=== PATIENT | male | born 1990 | race Caucasian/White ===

== ENCOUNTER 2018-07-29 11:00 | Emergency (ER) | payer SELFPAY ==
[~2018-07-29] VITALS: Ht 193 cm; Wt 158.8 kg
[~2018-07-29 11:00] MED LIST: OMEP20CA12 PO; RT-ALBUINH INH
[2018-07-29 11:16] LABS: BASOPHILS % (AUTO) 0 % (0-10); EOSINOPHILS # (AUTO) 0.2 10^3/uL (0.0-0.3); EOSINOPHILS % (AUTO) 2 % (0-10); HEMATOCRIT 44 % (40-54); LYMPHOCYTES # (AUTO) 2.1 X 10^3 (1.0-4.0); LYMPHOCYTES % (AUTO) 20 % (12-44); MEAN CORPUSCULAR HEMOGLOBIN 28 PG (25-34); MEAN CORPUSCULAR HGB CONC 34 G/DL (32-36); MEAN CORPUSCULAR VOLUME 81 FL (80-99); MEAN PLATELET VOLUME 9.8 FL (7.4-10.4); MONOCYTES # (AUTO) 0.9 X 10^3 (0.0-1.0); MONOCYTES % (AUTO) 9 % (0-12); NEUTROPHILS # (AUTO) 7.2 X 10^3 (1.8-7.8); NEUTROPHILS % (AUTO) 69 % (42-75); PLATELET COUNT 305 10^3/uL (130-400); RED BLOOD COUNT 5.43 10^6/uL (4.35-5.85); RED CELL DISTRIBUTION WIDTH 13.4 % (10.0-14.5); WHITE BLOOD COUNT 10.4 10^3/uL (4.3-11.0)
[2018-07-29] MEDS: ONDANSETRON 4 MG/2 ML (SDV) Z0FRAN IVP ONE (11:20)
[2018-07-29] MEDS: LIDOCAINE 2% VISCOUS 15 ML UDC PO ONE (11:21)
[2018-07-29] MEDS: ANTACID SUSP 30 ML UDC (MYLANTA) PO ONE (11:21)
[2018-07-29] MEDS: NS IV 1000 ML 1,000 ML IV ONE (11:21)
[2018-07-29 11:37] LABS: ALANINE AMINOTRANSFERASE 29 U/L (0-55); ALBUMIN 4.7 GM/DL (3.2-4.5); ALKALINE PHOSPHATASE 81 U/L (40-136); BILIRUBIN,TOTAL 0.4 MG/DL (0.1-1.0); BUN/CREATININE RATIO 13; CALCIUM 10.2 MG/DL (8.5-10.1); CARBON DIOXIDE 23 MMOL/L (21-32); CHLORIDE 105 MMOL/L (98-107); CREATININE SERUM 0.89 MG/DL (0.60-1.30); GFR ESTIMATED > 60; GLUCOSE 94 MG/DL (70-105); LIPASE 12 U/L (8-78); POTASSIUM 4.3 MMOL/L (3.6-5.0); SODIUM 138 MMOL/L (135-145); TOTAL PROTEIN 8.3 GM/DL (6.4-8.2)
--- OUTSIDE RECORDS SUMMARY | 2018-07-29 11:40 | XMS REPORT | Continuity of Care Document ---
Author Author [facility] Organization [facility] Address Unknown Phone Unavailable Allergies Active Description Code Type Severity Reaction Onset Reported/Identified Relationship to Patient Clinical Status Yes No Known Drug Allergies [id number] Drug Allergy Unknown N/A 05/02/2015 Medications There is no data. Problems Date Dx Coded Attending Type Code Diagnosis Diagnosed By 02/06/2014 ELIAS LUND MD Ot 305.1 TOBACCO USE DISORDER 02/06/2014 ELIAS LUND MD Ot 493.90 ASTHMA, UNSPECIFIED 02/06/2014 ELIAS LUND MD Ot 924.20 CONTUSION OF FOOT 02/06/2014 ELIAS LUND MD Ot E906.8 INJ NEC CAUSED BY ANIMAL 05/02/2015 TANA WORRELL MD Ot 786.50 CHEST PAIN NOS 05/02/2015 TANA WORRELL MD Ot 786.59 CHEST PAIN NEC Procedures There is no data. Results Test Result Range Complete blood count (CBC) with automated white blood cell (WBC) differential - 07/29/18 11:06 Blood leukocytes automated count (number/volume) 10.4 10*3/uL 4.3-11.0 Blood erythrocytes automated count (number/volume) 5.43 10*6/uL 4.35-5.85 Venous blood hemoglobin measurement (mass/volume) 15.0 g/dL 13.3-17.7 Blood hematocrit (volume fraction) 44 % 40-54 Automated erythrocyte mean corpuscular volume 81 [foz_us] 80-99 Automated erythrocyte mean corpuscular hemoglobin (mass per erythrocyte) 28 pg 25-34 Automated erythrocyte mean corpuscular hemoglobin concentration measurement ( mass/volume) 34 g/dL 32-36 Automated erythrocyte distribution width ratio 13.4 % 10.0-14.5 Automated blood platelet count (count/volume) 305 10*3/uL 130-400 Automated blood platelet mean volume measurement 9.8 [foz_us] 7.4-10.4 Automated blood neutrophils/100 leukocytes 69 % 42-75 Automated blood lymphocytes/100 leukocytes 20 % 12-44 Blood monocytes/100 leukocytes 9 % 0-12 Automated blood eosinophils/100 leukocytes 2 % 0-10 Automated blood basophils/100 leukocytes 0 % 0-10 Blood neutrophils automated count (number/volume) 7.2 10*3 1.8-7.8 Blood lymphocytes automated count (number/volume) 2.1 10*3 1.0-4.0 Blood monocytes automated count (number/volume) 0.9 10*3 0.0-1.0 Automated eosinophil count 0.2 10*3/uL 0.0-0.3 Automated blood basophil count (count/volume) 0.0 10*3/uL 0.0-0.1 Encounters ACCT No. Visit Date/Time Discharge Status Pt. Type Provider Facility Loc./Unit Complaint [id number] 05/02/2015 00:34:00 05/02/2015 02:44:00 DIS Emergency TANA WORRELL MD [facility] ER CP [id number] 02/06/2014 00:22:00 02/06/2014 00:57:00 DIS Emergency ELIAS LUND MD [facility] ER COW STEPPED ON LFT FOOT [id number] 07/29/2018 11:02:00 ACT Emergency TANA WORRELL MD [facility] ER CHEST PAIN;VOMITING [id number] 05/02/2015 03:30:07 ACT Document Registration [id number] 04/04/2018 12:30:00 04/04/2018 23:59:59 [facility] Outpatient ZEYAD DAVIS [facility]
--- NOTE | 2018-07-29 11:42 | ED Chest Pain ---
General Chief Complaint: Chest Wall/Rib Pain Stated Complaint: CHEST PAIN;VOMITING Source: patient Exam Limitations: no limitations History of Present Illness Date Seen by Provider: Jul 29, 2018 Time Seen by Provider: 11:03 Initial Comments This 28-year-old young man presents to emergency room with complaints of chest pain, nausea and vomiting, and shortness of breath. He arrives via EMS. Patient was at work when he suddenly developed chest pain and vomited a short time after. He then developed shortness of breath. EMS noted wheezing on auscultation. A DuoNeb treatment was administered. This seemed to resolve his wheezing, shortness of breath, and chest pain. Patient notes he is presently taking Prilosec as treatment for ulcer. Patient has not undergone endoscopy. Ulcer was diagnosed by clinical impression. He does have a history of asthma as well. He is noted to be tachycardic but states that he is anxious. He has no pain now but is tender in epigastrium on palpation. Allergies and Home Medications Allergies Coded Allergies: No Known Drug Allergies (Unverified , 05/02/15) Home Medications Albuterol Sulfate 8.5 Gm Hfa.aer.ad, 1 INHALER INH UD, (Reported) Albuterol Sulfate 1 Puff Puff, 2 PUFF IH Q4H 1 PUFF = 90 MCG Prescribed by: TANA DAVIS on 07/29/18 1222 Famotidine 20 Mg Tablet, 20 MG PO BID Prescribed by: TANA DAVIS on 07/29/18 1221 Omeprazole 20 Mg Capsule.dr, 20 MG PO DAILY Prescribed by: TANA DAVIS on 05/02/15 0234 Ondansetron 4 Mg Tab.rapdis, 4 MG SL Q4H PRN for NAUSEA/VOMITING-1ST LINE Prescribed by: TANA DAVIS on 07/29/18 1221 Sucralfate 1 Gm/10 Ml Oral.susp, 1 GM PO QID 30 minutes before meals and before bed Prescribed by: TNAA DAVIS on 07/29/18 1221 Patient Home Medication List Home Medication List Reviewed: Yes Review of Systems Review of Systems Constitutional: no symptoms reported EENTM: No Symptoms Reported Respiratory: See HPI Cardiovascular: See HPI Gastrointestinal: See HPI Genitourinary: No Symptoms Reported Musculoskeletal: no symptoms reported Skin: no symptoms reported Psychiatric/Neurological: See HPI Endocrine: No Symptoms Reported Hematologic/Lymphatic: No Symptoms Reported Past Lzxbqbe-Vgrank-Xspmes Hx Past Med/Social Hx: Reviewed and Corrections made Patient Social History Alcohol Use: Denies Use Recreational Drug Use: No Smoking Status: Never a Smoker Immunizations Up To Date Tetanus Booster (TDap): More than 5yrs Seasonal Allergies Seasonal Allergies: No Past Medical History Surgeries: Yes (L WRIST secondary to trauma) Orthopedic Respiratory: Yes Asthma Currently Using CPAP: No Currently Using BIPAP: No Cardiac: No Neurological: No Reproductive Disorders: No Sexually Transmitted Disease: No HIV/AIDS: No Gastrointestinal: Yes Ulcer Musculoskeletal: No Endocrine: Yes (Obesity) Cancer: No Psychosocial: No Integumentary: No Blood Disorders: No Adverse Reaction/Blood Tranf: No Family Medical History Cancer Physical Exam Vital Signs Vital Signs - First Documented 07/29/18 11:04 Temp 99.0 Pulse 113 Resp 18 B/P (MAP) 177/103 (127) Pulse Ox 97 O2 Delivery Room Air Capillary Refill : Height, Weight, BMI Height: 6'4" Weight: 325lbs. oz. 147.945094xh; 39.56 BMI Method:Stated General Appearance: WD/WN, Mild Distress, Obese HEENT: PERRL/EOMI, Normal ENT Inspection Neck: Normal Inspection Respiratory: Lungs Clear, Normal Breath Sounds, No Accessory Muscle Use, No Respiratory Distress Cardiovascular: No Edema, No Murmur, Tachycardia Gastrointestinal: Normal Bowel Sounds, Soft, Tenderness (epigastrium) Extremity: Normal Inspection, No Pedal Edema Neurologic/Psychiatric: Alert, Oriented x3, No Motor/Sensory Deficits, Normal Mood/Affect, conventional machinist II-XII Norm as Tested Skin: Normal Color, Warm/Dry Progress/Results/Core Measures Results/Orders Lab Results Laboratory Tests Test 07/29/18 11:06 Range/Units White Blood Count 10.4 4.3-11.0 10^3/uL Red Blood Count 5.43 4.35-5.85 10^6/uL Hemoglobin 15.0 13.3-17.7 G/DL Hematocrit 44 40-54 % Mean Corpuscular Volume 81 80-99 FL Mean Corpuscular Hemoglobin 28 25-34 PG Mean Corpuscular Hemoglobin Concent 34 32-36 G/DL Red Cell Distribution Width 13.4 10.0-14.5 % Platelet Count 305 130-400 10^3/uL Mean Platelet Volume 9.8 7.4-10.4 FL Neutrophils (%) (Auto) 69 42-75 % Lymphocytes (%) (Auto) 20 12-44 % Monocytes (%) (Auto) 9 0-12 % Eosinophils (%) (Auto) 2 0-10 % Basophils (%) (Auto) 0 0-10 % Neutrophils # (Auto) 7.2 1.8-7.8 X 10^3 Lymphocytes # (Auto) 2.1 1.0-4.0 X 10^3 Monocytes # (Auto) 0.9 0.0-1.0 X 10^3 Eosinophils # (Auto) 0.2 0.0-0.3 10^3/uL Basophils # (Auto) 0.0 0.0-0.1 10^3/uL Sodium Level 138 135-145 MMOL/L Potassium Level 4.3 3.6-5.0 MMOL/L Chloride Level 105 98-107 MMOL/L Carbon Dioxide Level 23 21-32 MMOL/L Anion Gap 10 5-14 MMOL/L Blood Urea Nitrogen 12 7-18 MG/DL Creatinine 0.89 0.60-1.30 MG/DL Estimat Glomerular Filtration Rate > 60 BUN/Creatinine Ratio 13 Glucose Level 94 70-105 MG/DL Calcium Level 10.2 H 8.5-10.1 MG/DL Corrected Calcium 8.5-10.1 MG/DL Total Bilirubin 0.4 0.1-1.0 MG/DL Aspartate Amino Transf (AST/SGOT) 20 5-34 U/L Alanine Aminotransferase (ALT/SGPT) 29 0-55 U/L Alkaline Phosphatase 81 40-136 U/L Troponin I < 0.30 <0.30 NG/ML Total Protein 8.3 H 6.4-8.2 GM/DL Albumin 4.7 H 3.2-4.5 GM/DL Lipase 12 8-78 U/L My Orders Orders - TANA WORRELL MD Cbc With Automated Diff (07/29/18 11:11) Comprehensive Metabolic Panel (07/29/18 11:11) Lipase (07/29/18 11:11) Troponin I (07/29/18 11:11) Saline Lock/Iv-Start (07/29/18 11:11) Ekg Tracing (07/29/18 11:11) Monitor-Rhythm Ecg Trace Only (07/29/18 11:11) Chest Pa/Lat (2 View) (07/29/18 11:11) Ondansetron Injection (Zofran Injectio (07/29/18 11:15) Lidocaine 2% Viscous 15 Ml (Xylocaine Vi (07/29/18 11:15) Antacid Suspension (Mylanta Suspension (07/29/18 11:15) Ns Iv 1000 Ml (Sodium Chloride 0.9%) (07/29/18 11:12) Medications Given in ED Current Medications Medications Dose Ordered Sig/Alma Route Start Time Stop Time Status Last Admin Dose Admin Al Hydrox/Mg Hydrox/Simethicone 30 ml ONCE ONCE PO 07/29/18 11:15 07/29/18 11:16 DC 07/29/18 11:21 30 ML Lidocaine HCl 15 ml ONCE ONCE PO 07/29/18 11:15 07/29/18 11:16 DC 07/29/18 11:21 15 ML Ondansetron HCl 8 mg ONCE ONCE IVP 07/29/18 11:15 07/29/18 11:16 DC 07/29/18 11:20 8 MG Sodium Chloride 1,000 ml @ 0 mls/hr Q0M ONCE IV 07/29/18 11:12 07/29/18 11:13 DC 07/29/18 11:21 1,000 MLS/HR Vital Signs/I&O 07/29/18 07/29/18 07/29/18 11:04 11:52 12:34 Temp 99.0 Pulse 113 101 106 Resp 18 B/P (MAP) 177/103 (127) 131/93 (106) 150/94 (112) Pulse Ox 97 95 96 O2 Delivery Room Air Progress Progress Note : Progress Note Patient stated that his chest pain and shortness of breath resolved with the DuoNeb treatment. As part of his assessment, he was given Zofran and a GI cocktail. This completely resolved his epigastric tenderness. Patient was feeling well. Workup was unremarkable. I suspect that his symptoms are largely due to GI etiology with acid reflux. The vomiting likely also triggered an asthma exacerbation. I have recommended increasing his GI therapies with dietary modifications and the addition of an H2 dao and Carafate. I have advised him to return if symptoms worsen again. I've also advised close follow-up in the clinic. Patient expressed understanding and had no further questions. Initial ECG Impression Date: Jul 29, 2018 Initial ECG Impression Time: 11:05 Initial ECG Rate: 109 Initial ECG Rhythm: S.Tach Comment Sinus tachycardia with no ST elevation or depression. No abnormal intervals or axis deviation. Diagnostic Imaging Diagonstic Imaging: Xray Plain Films/CT/US/NM/MRI: chest Comments Chest x-ray viewed by me and report reviewed. See report below: NAME: [facility] REC#: [id number] PT STATUS: REG ER : 1990 PHYSICIAN: TANA WORRELL MD ADMIT DATE: 07/29/18/ER Draft Date of Exam:07/29/18 CHEST PA/LAT (2 VIEW) INDICATION: Chest pain. COMPARISON: Comparison is made with the prior examination dated 05/02/2015. FINDINGS: The heart size, mediastinal configuration, and pulmonary vascularity are within normal limits. There is no pleural effusion, pneumothorax, or pneumonia. The osseous structures are unremarkable. IMPRESSION: No acute cardiopulmonary abnormality. Dictated on workstation # [id number] Dict: 07/29/18 1208 Trans: 07/29/18 1221 [facility] [id number] Interpreted by: SHANTEL MILLER MD Departure Impression Primary Impression: Atypical chest pain Additional Impressions: Epigastric pain Nausea and vomiting Qualified Codes: R11.2 - Nausea with vomiting, unspecified Asthma exacerbation Qualified Codes: J45.901 - Unspecified asthma with (acute) exacerbation Disposition: 01 HOME, SELF-CARE Condition: Improved Departure-Patient Inst. Decision time for Depature: 12:22 Referrals: VIVIANA CABAN DO (PCP/Family) Primary Care Physician Patient Instructions: Acid Reflux (Gastroesophageal Reflux Disease), Adult (DC) , Chest Pain (DC) Add. Discharge Instructions: Add Carafate (sucralfate) and Pepcid (famotidine) to your acid reflux and ulcer treatment as prescribed. Follow-up with your primary care provider soon as possible. Please call today or tomorrow to make an appointment. Return to care if symptoms worsen. Avoid the following: Eating large meals, eating close to bedtime, caffeine, carbonation, citrus fruits and juices, chocolate, tobacco, alcohol, tomato products, mints, spicy foods, fatty or greasy foods, and anything else you know irritates your stomach. Avoid tight fitting clothes as this may worsen acid reflux. Sleeping with your head and shoulders raised may also reduce acid reflux by allowing gravity to help. Use your albuterol inhaler as prescribed for treatment of asthma exacerbations. All discharge instructions reviewed with patient and/or family. Voiced understanding. Scripts Albuterol Sulfate (PROAIR HFA) 1 Puff Puff 2 PUFF IH Q4H, #1 PUFF 1 PUFF = 90 MCG Prov: TANA WORRELL MD 07/29/18 Famotidine (Pepcid) 20 Mg Tablet 20 MG PO BID, #60 TAB Prov: TANA WORRELL MD 07/29/18 Sucralfate (Carafate) 1 Gm/10 Ml Oral.susp 1 GM PO QID, #1200 ML 30 minutes before meals and before bed Prov: TANA WORRELL MD 07/29/18 Ondansetron (Ondansetron Odt) 4 Mg Tab.rapdis 4 MG SL Q4H PRN for NAUSEA/VOMITING-1ST LINE, #10 TAB Prov: TANA WORRELL MD 07/29/18 TANA WORRELL MD Jul 29, 2018 11:42
[2018-07-29 11:52] VITALS: BP 131/93
[2018-07-29] MEDS ORDERED: SUCR1ORA5 PO (12:21)
[2018-07-29] MEDS ORDERED: ONDA4TAB11 SL (12:21)
[2018-07-29] MEDS ORDERED: FAMO-119 PO (12:21)
[2018-07-29] MEDS ORDERED: RT-ALBUINH IH (12:22)
--- NOTE | 2018-07-29 12:22 | Diagnostic Imaging Report ---
INDICATION: Chest pain. COMPARISON: Comparison is made with the prior examination dated 05/02/2015. FINDINGS: The heart size, mediastinal configuration, and pulmonary vascularity are within normal limits. There is no pleural effusion, pneumothorax, or pneumonia. The osseous structures are unremarkable. IMPRESSION: No acute cardiopulmonary abnormality. Dictated by: Dictated on workstation # [id number]
[2018-07-29 12:34] VITALS: BP 150/94
== END 2018-07-29 12:34 | disposition home or self-care (01) ==
LOC: EDUNIT# 11:00 → ER 11:02
DX: R07.9 Chest pain, unspecified (principal); R10.13 Epigastric pain; R11.2 Nausea with vomiting, unspecified; J45.901 Unspecified asthma with (acute) exacerbation; E66.9 Obesity, unspecified; Z68.39 Body mass index [BMI] 39.0-39.9, adult; Z79.51 Long term (current) use of inhaled steroids; Z87.19 Personal history of other diseases of the digestive system
CPT/HCPCS: 36415; 71046; 80053; 83690; 84484; 85025; 93041